=== PATIENT | male | born 1980 | race Caucasian/White ===

== ENCOUNTER 2020-12-22 00:09 | Emergency (ER) | payer SELFPAY ==
[~2020-12-22] VITALS: Ht 182.9 cm; Wt 81.8 kg
[2020-12-22 01:43] VITALS: BP 129/93; PULSE 83; TEMP 97.7
== END 2020-12-22 01:43 | disposition home or self-care (01) ==
LOC: COL.ER 00:09
DX: S51.812A Laceration without foreign body of left forearm, initial encounter (principal); W26.8XXA Contact with other sharp object(s), not elsewhere classified, initial encounter